=== PATIENT | female | born 1960 | race Caucasian/White ===

== ENCOUNTER 2019-03-28 08:08 | Emergency (ER) | payer OTHER ==
[~2019-03-28] VITALS: Ht 157.5 cm; Wt 83.5 kg
[2019-03-28] MEDS ORDERED: ONDANSETRON 2MG/ML, 2ML ONE (08:25)
[2019-03-28] MEDS ORDERED: HYDROmorphone 1 MG/ML, 1ML VIAL ONE ×2 (08:25→11:10)
[2019-03-28] MEDS ORDERED: ONDANSETRON 2MG/ML, 2ML IVPush ONE (08:30)
[2019-03-28] MEDS ORDERED: SODIUM CHLORIDE FLUSH 10ML SYR IVF ONE (08:30)
[2019-03-28] MEDS ORDERED: PLEASE ENTER ALLERGIES MC SCH (08:30)
[2019-03-28] MEDS ORDERED: SODIUM CHLORIDE 0.9% 1,000ML IV ONE (08:30)
[2019-03-28] MEDS ORDERED: SERT25TA PO (08:33)
--- NOTE | 2019-03-28 08:34 | NUR ---
First contact with pt. Pt c/o L flank pain since this morning, hx of frequent kidney stones. Pt very uncomfortable, rates pain 10/10, cooperative with assessment and intervention. Pt placed in gown, positioned for comfort in bed. Attempting IV access at this time for ordered medications.
[2019-03-28] MEDS ORDERED: KETOROLAC 30 MG/1 ML ONE (08:36)
[2019-03-28] MEDS: HYDROmorphone 2 MG/ML, 1ML IVPush PRN ×2 (08:43→11:13)
--- NOTE | 2019-03-28 08:44 | NUR ---
PIV insterted and pt medicated per order. Pt reports pain now /. Pt denies other needs.
[2019-03-28 08:45] LABS: MICROSCOPIC AUTO
[2019-03-28 08:48] LABS: CULTURE INDICATED? YES
[2019-03-28 08:50] LABS: BASOPHILS # (AUTO) 0.02 x10^3/uL (0-0.1); BASOPHILS % (AUTO) 0 % (0-1); EOSINOPHILS # (AUTO) 0.14 x10^3/uL (0-0.4); EOSINOPHILS % (AUTO) 2 % (1-7); LYMPHOCYTES # (AUTO) 1.95 x10^3/uL (1-3.4); LYMPHOCYTES % (AUTO) 31 % (22-44); MD NO; MEAN CORPUSCULAR HEMOGLOBIN 30.3 pg (27.0-34.8); MEAN CORPUSCULAR HGB CONC 33.8 g/dL (32.4-35.8); MEAN CORPUSCULAR VOLUME 89.8 fL (80-100); MEAN PLATELET VOLUME 7.3 fL (7.4-10.4); MONOCYTES # (AUTO) 0.39 x10^3/uL (0.2-0.8); MONOCYTES % (AUTO) 6 % (2-9); NEUTROPHILS % (AUTO) 60 % (42-75); PLATELET COUNT 244 x10^3/uL (130-400); RED BLOOD COUNT 5.37 x10^6/uL (3.82-5.3); RED CELL DISTRIBUTION WIDTH 13.5 % (9.6-15.2)
--- NOTE | 2019-03-28 08:55 | NUR ---
Report to Jamari GONZALEZ.
[2019-03-28] MEDS ORDERED: KETOROLAC 30 MG/1 ML IVPush ONE (09:00)
[2019-03-28 09:03] LABS: ALANINE AMINOTRANSFERASE 45 U/L (12-78); ALBUMIN 3.9 g/dL (3.4-5.0); ANION GAP 7 mmol/L (5-15); CALCIUM 9.5 mg/dL (8.5-10.1); CHLORIDE 110 mmol/L (98-107); CREATININE 1.14 mg/dL (0.55-1.02)
[2019-03-28 09:06] LABS: ALKALINE PHOSPHATASE 116 U/L (45-117); BILIRUBIN,TOTAL 0.7 mg/dL (0.2-1.0); TOTAL PROTEIN 8.2 g/dL (6.4-8.2)
--- NOTE | 2019-03-28 10:43 | NUR ---
TASK RN: STRAIGHT CATH PERFORMED USING STERILE TECHNIQUE, PT TOLERATED WELL. UA WALKED TO LAB.
[2019-03-28 10:53] LABS: MICROSCOPIC AUTO
[2019-03-28 10:54] LABS: CULTURE INDICATED? YES
--- NOTE | 2019-03-28 11:14 | NUR ---
Task rn: Patient medicated per emar with 1mg dilaudid for continued left flank pain rated at 7/10 on 2l nc as precaution. call rose in hand. Will continue to closely monitor
--- NOTE | 2019-03-28 12:21 | NUR ---
pt resting comfortably. pt states pain is at ta tolerable level. pt updated on poc and agrees.
[2019-03-28 13:13] VITALS: BP 157/103
== END 2019-03-28 13:26 | disposition home or self-care (01) ==
LOC: ED 10:41
DX: N13.2 Hydronephrosis with renal and ureteral calculous obstruction (principal); I10 Essential (primary) hypertension
CPT/HCPCS: 36415; 74176; 80053; 81001; 83690; 85025; 87077; 87086; 87186; 96374; 96375; 96376; 99284; J1170; J1885; J2405; J7030